=== PATIENT | male | born 1985 | race Caucasian/White ===

== ENCOUNTER 2018-06-25 03:30 | Emergency (ER) | payer OTHER ==
[2018-06-25] MEDS ORDERED: Bacitracin Oint 1 GM U/D Packet ONE (03:44)
[2018-06-25 03:45] VITALS: BP 140/86
[2018-06-25] MEDS ORDERED: Bacitracin Oint 1 GM U/D Packet TOP ONE (03:45)
[2018-06-25] MEDS ORDERED: Ketorolac 60 MG/2 ML SDV IM ONE (03:45)
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
--- NOTE | 2018-06-26 19:25 | CR ---
EXAM DATE: 06/25/18 PATIENT'S AGE: 32 Patient: GAURI MATA Facility: [place], [place] Site . Site : 1985 Study: XRay Knee Left-06/25/2018 4:08:34 AM Ordering Physician: Clive Vela Final Report: INDICATION: Knee pain following fall TECHNIQUE: Knee radiograph 3 views left COMPARISON: None FINDINGS: Bone: No acute fractures or aggressive bone lesions are identified. Joint: The joint spaces of the medial, lateral, and patellofemoral compartments are unremarkable. No significant knee effusion is seen. Soft tissue: Unremarkable. No radiopaque foreign bodies are seen. IMPRESSION: 1. No acute osseous injuries or abnormalities are noted. Dictated by: Saulo Proctor MD @ 06/25/2018 04:26:17 (Electronic Signature) Report Signed by Proxy. [email or web address]
== END 2018-06-25 04:44 | disposition home or self-care (01) ==
LOC: MW.ED 03:30
DX: S80.02XA Contusion of left knee, initial encounter (principal); Z88.0 Allergy status to penicillin; W50.0XXA Accidental hit or strike by another person, initial encounter
CPT/HCPCS: 73562-26-LT; 73562-LT; 99283

== ENCOUNTER 2019-06-07 00:32 | Emergency (ER) | payer SELFPAY ==
[2019-06-07 00:38] VITALS: BP 113/68; PULSE 103
== END 2019-06-07 01:09 | disposition left against medical advice (07) ==
LOC: MW.ED 00:32
DX: Z53.21 Procedure and treatment not carried out due to patient leaving prior to being seen by health care provider (principal)